=== PATIENT | female | born 1985 | race Caucasian/White ===

== ENCOUNTER 2019-03-15 08:30 | Day surgery (SDC) | payer OTHER, SELFPAY ==
--- NOTE | 2019-03-12 17:23 | HP.PCM_ITS ---
History and Physical Date of Admission: 03/15/19 Es Clancy Physician GRADUATE STUDIES DEAN H&P Signed Encounter Date: 03/12/2019 Expand All Collapse All Hide copied text Cordell for details Paulina Wise is a 33 year old female who presents for pre op for AUB. Pt is scheduled for hysteroscopy, D&C, polypectomy using syphion. Patient had a recent ultrasound which showed a fundal endometrial polyp. Patient states she has heavy bleeding with intermenstrual spotting. Currently patient denies any chest pain, shortness breath, dizziness, fevers. ? PAST?MEDICAL?HISTORY PAST MEDICAL HISTORY Diagnosis Date ? Lump of breast, right 06/13/2012 ? Migraines ? ? Atypical Migraines ? PAST?SURGICAL?HISTORY PAST SURGICAL HISTORY Procedure Laterality Date ? BREAST BIOPSY ? 07/24/12 ? Right Breast ? MYOMECTOMY ABDOM COMPLEX ? 09/01/15 ? [facility]- Myomectomy ? FAMILY?HISTORY FAMILY HISTORY Problem Relation Age of Onset ? other (endometriosis) Mother ? ? hysterectomy ? Diabetes Father ? ? Stroke Father ? ? Recent strokes ? No Known Problems Sister ? ? No Known Problems Sister ? ? other (Dementia) Maternal Grandmother ? ? Stroke Maternal Grandfather ? ? Heart Paternal Grandmother ? ? CHF, SD ? Alzheimer's Disease Paternal Grandfather ? ? SOCIAL?HISTORY Social History Socioeconomic History Marital status: Single Spouse name: Not on file Number of children: 0 Years of education: Not on file Highest education level: Not on file Occupational History Occupation: MANAGER CLIENT SERVICE Employer: [employer] Social Needs Financial resource strain: Not on file Food insecurity: Worry: Not on file Inability: Not on file Transportation needs: Medical: Not on file Non-medical: Not on file Tobacco Use Smoking status: Never Smoker Smokeless tobacco: Never Used Substance and Sexual Activity Alcohol use: Yes Comment: Rarely Drug use: No Sexual activity: Not Currently Lifestyle Physical activity: Days per week: Not on file Minutes per session: Not on file Stress: Not on file Relationships Social connections: Talks on phone: Not on file Gets together: Not on file Attends [employer]aritan service: Not on file Active member of club or organization: Not on file Attends meetings of clubs or organizations: Not on file Relationship status: Not on file Intimate partner violence: Fear of current or ex partner: Not on file Emotionally abused: Not on file Physically abused: Not on file Forced sexual activity: Not on file Other Topics Concerns: Not on file Social History Narrative Not on file ? CURRENT?MEDICATIONS ? Current Outpatient Medications: rizatriptan (MAXALT) 10 mg tablet Take 1 tablet by mouth as needed for Migraine Headache (see administration instructions) (5-10 mg every 2 hrs as needed for migraine (max 30 mg/day)). May repeat in 2 hours if needed naproxen sodium (ALEVE) 220 mg tablet Take 2 tablets by mouth as needed (for cramping). ibuprofen (MOTRIN) 600 mg tablet Take 1 tablet by mouth every 6 hours as needed. FOR PAIN. ? No current facility-administered medications for this visit. Allergies As of Date: 03/12/2019 (No Known Allergies) Fully Assessed 03/12/2019 ? ? REVIEW OF SYSTEMS Abdomen: no pain Bladder: no dysuria .. Expanded ROS: GENERAL: Negative for fever Allergies and current medication updated:Yes ? EXAM: BP 94/52 Wt 145 lb (65.8kg) LMP 02/27/2019 ? GENERAL: pleasant, female in no apparent distress HEENT: Normocephalic and atraumatic NECK: full range of motion DERMATOLOGY: Normal, without lesions, non-icteric and non-hirsute CARDIAC: Regular rate and rhythm CHEST: Clear to auscultation Normal inspiratory effort NEURO: alert and oriented x3,exam grossly non-focal ? Report Summary: Overall impression: Uterus is retroverted with normal size and contour. ? Endometrial thickness 9.5 mm. ?There is a hyperechoic area at the fundal aspect which is consistent with the endometrial polyp. Right ovary with multiple follicles Left ovary with multiple follicles and what appears to be an involuting corpus luteal cyst measuring 2.2 cm in greatest dimension. ? Moderate amount of free fluid in the cul-de-sac. Recommendations / therapy: Consider hysteroscopic resection of the endometrial polyp. Follow- up: Follow-up as clinically indicated. Indication: Abnormal Uterine Bleeding. History: Last menstrual period: 01/31/2019. 13th day of cycle. Gynecological Ultrasonography: Uterus: normal, retroverted. Size: Longitudinal 75 mm. Anterio- posterior 41 mm. Transverse 50 mm. Volume: 80.5 ?ml. Uterine abnormalities: none. Endometrium: endometrium clearly visualized. Endometrial cavity: shows a hyperechoic area consistant with an endometrial polyp. Endometrial polyps: 7 mm x 4 mm x 5 mm. Fundal. Structure: homogeneous. Method visualized: without fluid enhancement. Right Ovary: normal. Visible. Outline: smooth. Morphology: multifollicular. Right Ovary size: 31 mm x 26 mm x 23 mm. Volume: 9.7 ml. Left Ovary: normal. Visible. Outline: smooth. Morphology: multifollicular. Left Ovary size: 35 mm x 22 mm x 23 mm. Volume: 9.3 ml. Cysts Left Ovary: Cyst 1: Mean value: 17 mm. D1: 22 mm. D2: 18 mm. D3: 12 mm. Volume: 2 ml. Complex cyst. Cul de Sac / Pouch of Stanislav: Small amount of free fluid. Largest pool 13.0 mm x 12.0 mm x 17.0 mm. Appearances: anechoic. Method: transvaginal ultrasound. Performed by:Anne Zarco RDMS Read by:Es Mcmahon MD ? ASSESSMENT AND PLAN: Encounter Diagnosis ? ? ICD-10-CM ? 1. Abnormal uterine bleeding (AUB) N93.9 ? 2. Endometrial polyp N84.0 ? ? 3. Pt has been counseled on risks/benefits and alternatives of surgery including but not limited to anesthesia, bleeding, infection, injury to pelvic structures including bowel, bladder, and vessels. Pt wishes to proceed with surgery at this time. 4. Consent signed 5. Post op meds given ? ? Es Jiang MD ?5:20 PM Office Visit on 03/12/2019
[2019-03-15 08:52] VITALS: BP 95/52; PULSE 86; RESP 14; TEMP 36.9; O2SAT 100; BMI 21.6
[2019-03-15 08:59] LABS: Hematocrit 43.9 % (37-47); Hemoglobin 14.2 g/dL (12.0-15.0); Mean Corp Hgb Conc 32.3 g/dL (32-36); Mean Corpuscular Hgb 27.2 pg (27.0-32.0); Mean Corpuscular Volume 84.1 fL (81-99); Mean Platelet Vol. 9.3 fl (6.2-12.0); Platelet Count 261 K/mm3 (150-450); RBC Distribution Width CV 12.9 % (11.6-14.6); RBC Distribution Width SD 39.2 fl (35.1-43.9); Red Blood Count 5.22 M/mm3 (4.2-5.4); White Blood Count 6.5 K/mm3 (4.4-11.0)
[2019-03-15 09:05] LABS: Internal QC Validated? YES +Cl - CLEAR BKGD; Pregnancy, Urine Negative Negative
[2019-03-15] MEDS: Lactated Ringers 1,000 ML 100 ML IV (09:18)
--- NOTE | 2019-03-15 10:00 | EMB_PTH ---
PATIENT: KURTIS JAMES LOC: [facility] [place][id number] AGE/SX: 33/F ROOM: RE03/15/[address]: Dr. Es Jiang, MDDOB: 1985 BED: DIS: 03/15/2019 SPEC #: [id number] RECD: 03/15/19 14:46 STATUS: SHELIA LYNETTE #: [id number] OCTAVIA: 03/15/19 10:[address]: Es Jiang DEPT: SURGICAL PATHOLOGY RECD BY: Daniele Rudd ENTERED: 03/16/19 08:23 SP TYPE: ENDOM BX/C KASSANDRA DR: Dr. Linus Bautista III, MD Tissues: A - Endometrium, NOS B - POLYP Procedures: Surgery Specimen Level IV HEADER OPERATION: Hysteroscopy, D & C Symphion, polypectomy PRE-OP DIAGNOSIS: Abnormal uterine bleeding; endometrial polyp TISSUE SUBMITTED: A - Endometrial curettings, B - Polyp MICROSCOPIC DIAGNOSIS A. Endometrial curettings: Secretory endometrium. Fragments of benign ecto- and endocervical mucosa. B. Polyp: Secretory endometrium. Fragments of myometrium. See comment. HARIKA:sharmila 03/19/19 COMMENT B. A few fragments have polypoid appearance and may represent fragments of polyp. MICROSCOPIC DESCRIPTION Slides are reviewed. GROSS DESCRIPTION A - Received in fixative is one container labeled with the patient's name and designated endometrial curettings. The specimen consists of multiple fragments of hemorrhagic soft tissue that in aggregate measure 3 x 2.5 x 0.3 cm. The entire specimen is submitted in one cassette. B - Received in fixative is one container labeled with the patient's name and designated polyp. The specimen consists of multiple irregular fragments of phillips-pink soft tissue that in aggregate measure 3 x 2.5 x 0.3 cm. The entire specimen is submitted in one cassette. / HARIKA:sharmila 03/16/19 TC:5 CPT: 82406 x2
--- NOTE | 2019-03-15 12:00 | PCM.OPRPT ---
Report of Operation Date of Procedure: 03/15/19 Pre-Operative Diagnosis: AUB, endometrial polyp Post-Operative Diagnosis: same Surgery/Procedure Performed:: hysteroscopy, D&C, with symphion Description of Surgical Findings:: large amount of endometrial tissue. Questionable polypoid tissue. Uterus approximately 9 cm and retroverted. Right tubal ostia visualized left tubal ostia difficult to see. photo mask processor: MAGNOLIA - Cesar Preston Type of Anesthesia:: MAC Specimen's removed: Endometrial curettings Drains: none Estimated Blood Loss (mL): 5 Fluids Replaced: 500 Description of Procedure: Informed consent was obtained the patient was taken the operating room she was placed in supine position. She was given anesthesia. She was then placed in the [facility] where she was prepped and draped in the normal sterile fashion. Bladder drained- 100cc urine expelled. At this time the weighted speculum was placed in the posterior fornix of vagina. Single-tooth tenaculum was used to gently grasp the anterior lip the cervix. At this time the uterine cavity was sounded to approximately 9 cm. Gentle dilatation was performed once adequate dilatation of the cervix was achieved the hysteroscope using normal saline as a distention medium was placed. abundant Endometrial tissue with possible polypoid tissue. Otherwise no gross abnormalities. Right Tubal ostia visualized left was difficult to visualize. Sharp curettage was performed. unable to get all tissue at fundal aspect- resector device for symphion used to remove remaining tissue. Moderate amount of endometrial tissue removed. This will be sent to pathology for evaluation. Procedure was deemed complete successful there are no complications. Anticipated normal postoperative course. Instrument lap count correct ?2. Fluid deficet 300cc Vaginal Sweep was negative. Grafts/Implants Used: none - Complications none - Admit VTE Documentation VTE Present on Admission: Yes VTE Mechan Device Prophylaxis: SCD's VTE Pharm Prophylaxis ordered?: No Reason prophylaxis not ordered:: Procedure Not Indicated
--- NOTE | 2019-03-15 12:06 | DCINST_ITS ---
Discharge Diet: No Restrictions Discharge Activity: Return to Normal Activity, May Shower, May Take a Tub Bath - in 2 weeks. Allergies/Adverse Reactions: Allergies No Known Allergies Allergy (Verified 03/08/19 09:56) Medications to take at Discharge Rizatriptan Benzoate [Rizatriptan] 10 mg PO PRN PRN 03/08/19 Primary Care Physician: Linus Bautista III, MD [Primary Care Provider] - Test Results: Test results from this visit will be discussed in further detail at your follow- up appointment, if applicable.
[2019-03-15 12:16] VITALS: BP 95/52; BP 97/55; PULSE 86; RESP 16; TEMP 36.1; O2SAT 96
[2019-03-15 12:20] VITALS: BP 93/49; BP 95/52; PULSE 83; RESP 16; O2SAT 96
[2019-03-15 12:25] VITALS: BP 104/73; BP 95/52; PULSE 86; RESP 16; O2SAT 96
[2019-03-15 12:27] VITALS: BP 95/52; BP 96/73; PULSE 69; RESP 16; TEMP 36.5; O2SAT 97
[2019-03-15 13:21] VITALS: BP 95/52
== END 2019-03-15 13:26 | disposition home or self-care (01) ==
LOC: SDC 08:34 → AC 08:35
PROVIDERS: Anesthesiology; Family Provider Family Medicine; PCP Family Medicine; Referring Provider Obstetrics & Gynecology; Visit Provider Obstetrics & Gynecology
PROC: 0UB98ZZ Excision of Uterus, Via Natural or Artificial Opening Endoscopic (ICD-10-PCS; CPT 58558; principal; 2019-03-15 09:45)
DX: N84.0 Polyp of corpus uteri (principal); N93.9 Abnormal uterine and vaginal bleeding, unspecified; G43.909 Migraine, unspecified, not intractable, without status migrainosus; Z79.899 Other long term (current) drug therapy
CPT/HCPCS: 58558; 36415; 81025; 85027; 88305; J7120

== ENCOUNTER 2021-04-30 17:10 | Emergency (ER) | payer OTHER, SELFPAY ==
[2021-04-30 17:11] VITALS: BP 124/85; PULSE 96; RESP 16; TEMP 36.3; O2SAT 100; BMI 24.3
--- NOTE | 2021-04-30 17:32 | CT_ITS ---
STUDY: CT ABDOMEN AND PELVIS WITH CONTRAST REASON FOR EXAM: Female, 35 years old. LLQ pain RADIATION DOSAGE (If Supplied By Facility): CTDIvol = ( 11.53 ) mGy, DLP = ( 536.01 ) mGycm TECHNIQUE: Transaxial images were obtained from the dome of the diaphragm to the symphysis pubis without oral contrast. IV 100mL Isovue-300 was administered. Sagittal and coronal images were reconstructed. Individualized dose optimization techniques were used for this CT. COMPARISON: None. FINDINGS: There is minimal dependent atelectasis within the lower lobes. The visualized portions of the heart are within normal limits. There are two too small to characterize low-attenuation foci within the left hepatic lobe which may reflect underlying cysts or hemangiomas. Normal gallbladder and extrahepatic biliary system. Normal spleen. Normal pancreas. Normal bilateral adrenal glands. Normal right kidney. Normal left kidney. Normal visualized stomach. Normal small intestine. Normal colon. The appendix is visualized and appears normal. Normal abdominal aorta. Normal inferior vena cava. Normal retroperitoneum. Normal urinary bladder. Normal abdominal wall. Normal osseous structures. CT/Abdomen/Pelvis W IV Cont ONLY IMPRESSION: No acute intra-abdominal process. Electronically Signed: Daisy Bianchi MD at 19:36 EDT Tel , Service support ,
[2021-04-30 17:50] LABS: Absolute Lymphocyte Count 3.01 X10^3/uL (0.83-4.51); Absolute Neutrophil Count 6.9 X10^3/uL (2.0-7.7); Basophil# 0.08 X10^3/uL; Basophil% 0.7 % (0-1); Eosinophil# 0.24 X10^3/uL; Eosinophils% 2.2 % (0-5); Hematocrit 40.7 % (37-47); Hemoglobin 13.3 g/dL (12.0-15.0); Lymphocyte # 3.01 X10^3/ul (0.83-4.51); Lymphocyte % 27.4 % (19-41); Mean Corp Hgb Conc 32.7 g/dL (32-36); Mean Corpuscular Hgb 27.4 pg (27.0-32.0); Mean Corpuscular Volume 83.7 fL (81-99); Mean Platelet Vol. 9.1 fl (6.2-12.0); Monocyte# 0.68 X10^3/uL; Monocyte% 6.2 % (0-10); NRBC Flagged by Analyzer 0 % (0-5); Neutrophil # 6.94 X10^3/uL (2.7-7.7); Neutrophil % 63.1 % (47-70); Platelet Count 374 K/mm3 (150-450); RBC Distribution Width CV 12.9 % (11.6-14.6); RBC Distribution Width SD 39.4 fl (35.1-43.9); Red Blood Count 4.86 M/mm3 (4.2-5.4)
[2021-04-30 18:09] LABS: Anion Gap 5 (5-15); BUN 14 mg/dL (7-18); Calcium,Total 8.7 mg/dL (8.5-10.1); Chloride 106 mmol/L (98-107); Creatinine, Serum 0.93 mg/dL (0.55-1.02); EST Glomerular Filtration Rate 73 mL/min (>60); Est Glom Filt Rate - Afr Amer 88 mL/min (>60); Estimated Creatinine Clearance 85.17 ml/min; Glucose 81 mg/dL (74-106); Potassium 3.5 mmol/L (3.5-5.1); Sodium Level 140 mmol/L (136-145)
[2021-04-30] MEDS: 0.9% Normal Saline 1,000 ML 999 ML IV (18:15)
[2021-04-30] MEDS: Morphine 4 MG/ML Syringe IV (18:15)
[2021-04-30] MEDS: Ondansetron 4 MG/2 ML Vial IV (18:15)
[2021-04-30 18:30] LABS: Bacteria 0 SEEN /hpf (None Seen); Mucous, Urine 0 SEEN /hpf (<or=2+); Red Blood Cells-Urine 0 SEEN /hpf (0-5); Squamous Epithelial Cells - UA 0 SEEN /hpf (5-10); White Blood Cells 0 SEEN /hpf (0-5)
[2021-04-30 18:35] LABS: Color, Urine Yellow (Yellow); Glucose, Dipstick Normal (Normal); Ketone-Dipstick Negative (Negative); Leukocyte Esterase-Dipstick Negative /ul (Negative); Nitrite-Dipstick Negative (Negative); Occult Blood-Urine 50 /ul (Negative); Protein-Dipstick Negative (Negative); Urine Bilirubin Dipstick Negative (Negative); Urine Clarity Clear (Clear); Urine Urobilinogen Normal (Normal)
--- NOTE | 2021-04-30 20:46 | EX.ED.DYSGE1 ---
HPI History of Present Illness Chief Complaint: Abd Pain Narrative Narrative: Patient is a 35-year-old female who states when she gets her menstrual cycle she typically has increased pain and cramping. She states she is currently on her cycle but today at work had increased pain mainly in the left lower quadrant and therefore went to her OBs office. The OB did an exam as well as an ultrasound and patient was informed that there is no obvious signs of ovarian pathology as a cause of her symptoms and therefore she presents to the ER for evaluation. PFSH PFSH Medical History no medical history Home Medications rizatriptan 10 mg PO PRN PRN 03/08/19 [History Last Taken Unknown] metoprolol tartrate 25 mg PO DAILY 04/30/21 [History Last Taken Unknown] ondansetron HCl [Zofran] 4 mg PO Q8H PRN #21 tab 04/30/21 [Rx Last Taken Unknown] oxycodone-acetaminophen [Endocet] 1 tab PO Q6H PRN 3 Days #12 tab 04/30/21 [Rx Last Taken Unknown] Allergy/AdvReac Type Severity Reaction Status Date / Time No Known Allergies Allergy Verified 04/30/21 17:11 Social History Smoking Status: Never smoker ROS ROS ED Constitutional Constitutional ED: Denies chills or fever(s) ENT ENT ED: Denies sore throat Cardiovascular Cardiovascular: Denies chest pain Respiratory/Chest Respiratory/Chest: Denies cough or dyspnea Gastrointestinal Gastrointestinal: Reports abdominal pain; Denies diarrhea, nausea or vomiting Genitourinary Genitourinary ED: Denies dysuria Musculoskeletal Musculoskeletal: Denies back pain or myalgias Integumentary Denies rash Neurologic Neurologic: Denies headache(s) Hematologic/Lymphatic Hematologic/Lymphatic: Denies easy bleeding or easy bruising EXAM Physical Exam Const Vital Signs: 04/30/21 17:11 04/30/21 21:02 Temperature 97.4 F L Temperature Source Temporal Pulse Rate 96 65 Respiratory Rate 16 Blood Pressure 124/85 H 116/81 H Blood Pressure Mean 98 Pulse Ox 100 Oxygen Delivery Method Room Air Positive well nourished and well developed General Appearance ED: well developed HEENT Reports moist mucous membranes Eyes PERRL and EOMs intact bilaterally Neck supple Resp normal respiratory effort and clear to auscultation bilaterally Cardio regular rate and regular rhythm GI non-distended and no masses GI Narrative: Patient has pain to palpation in the left lower quadrant with mild guarding at the site however there is no rigidity noted no pulsatile mass Auscultation: normoactive bowel sounds Palpation: soft Back/Spine no CVA tenderness Extremity normal to inspection Neuro oriented x3 and CN's II-XII intact bilaterally Sensorium / Orientation: alert Motor Exam: strength 5/5 throughout Psych mental status grossly normal Skin no rashes or lesions noted MDM MDM MDM Narrative Medical decision making narrative: Patient presented to the ER afebrile and states she was recently evaluated by the DATA COMMUNICATIONS ENGINEER who performed an exam and ultrasound ruling out torsion as a cause of her pain. Therefore with her mild guarding on exam I did elect to perform basic laboratory studies and a CT scan. Labs revealed no clinically significant findings. There is blood present in the urine sample but she is also on her menstrual cycle so this is not uncommon. Her CT scan revealed no acute findings. I feel at this time her pain is most likely due to a stone that has been missed on scanner is not radiopaque based on location in the left lower quadrant and report of negative ultrasound. As she does not have signs of acute kidney injury or septicemia I do not feel there is need for placement in the hospital and patient given pain medication and discharged home Lab Data Attestation: I reviewed the patient's lab results. Labs: Laboratory Results - last 24 hr 04/30/21 04/30/21 04/30/21 17:30 17:30 18:15 WBC 11.0 RBC 4.86 Hgb 13.3 Hct 40.7 MCV 83.7 MCH 27.4 MCHC 32.7 RDW Std Deviation 39.4 RDW Coeff of Jun 12.9 Plt Count 374 MPV 9.1 Immature Gran % (Auto) 0.400 Neut % (Auto) 63.1 Lymph % (Auto) 27.4 [place] % (Auto) 6.2 Eos % (Auto) 2.2 Baso % (Auto) 0.7 Absolute Neuts (auto) 6.9 Absolute Lymphs (auto) 3.01 Nucleated RBC % 0 Sodium 140 Potassium 3.5 Chloride 106 Carbon Dioxide 29.0 Anion Gap 5 BUN 14 Creatinine 0.93 Estim Creat Clear Calc 85.17 Est GFR (MDRD) Af Amer 88 Est GFR (MDRD) Non-Af 73 BUN/Creatinine Ratio 15.0 Glucose 81 Calcium 8.7 Urine Color Yellow Urine Clarity Clear Urine pH 7.0 Ur Specific [place] 1.010 Urine Protein Negative Urine Glucose (UA) Normal Urine Ketones Negative Urine Occult Blood 50 H Urine Nitrite Negative Urine Bilirubin Negative Urine Urobilinogen Normal Ur Leukocyte Esterase Negative Urine RBC 0 SEEN Urine WBC 0 SEEN Ur Squamous Epith Cells 0 SEEN Urine Bacteria 0 SEEN Urine Mucus 0 SEEN Radiography Diagnostic Testing: Clinical Impression(s) from Imaging Studies Abdomen/Pelvis CT 04/30/21 17:32 IMPRESSION: No acute intra-abdominal process. Electronically Signed: Daisy Bianchi MD at 19:36 EDT Tel , Service support , Discharge Plan Triage Chief Complaint: Abd Pain ED Provider: Karl Choi Dx/Rx/DC Orders Clinical Impression: Abdominal pain, left lower quadrant Instructions: Abdominal Pain, ED Abdominal Pain Unkn Cause Fem Prescriptions: New oxycodone-acetaminophen [Endocet] 5-325 mg tablet 1 tab PO Q6H PRN (Reason: pain) 3 Days Qty: 12 RF: 0 ondansetron HCl [Zofran] 4 mg tablet 4 mg PO Q8H PRN (Reason: nausea and vomiting) Qty: 21 RF: 0 No Action rizatriptan 10 MG tablet,disintegrating 10 mg PO PRN PRN (Reason: migraines) RF: 0 metoprolol tartrate 25 mg tablet 25 mg PO DAILY RF: 0 Primary Care Provider: Care Physician,No Primary Referrals: Fast,Lori, DO [NON-STAFF] - 3-5 Days if not improving Care Physician,No Primary [Primary Care Provider] - Disposition Disposition: Home, Self Care Discharge Date/Time: 04/30/21 21:07
[2021-04-30] MEDS: Ketorolac 30 MG/ML Syringe IV (20:57)
[2021-04-30] MEDS: HYDROmorphone 1 MG/ML Syringe IV (20:57)
[2021-04-30 21:02] VITALS: BP 116/81; PULSE 65
== END 2021-04-30 21:07 | disposition home or self-care (01) ==
PROVIDERS: Emergency Provider Emergency Medicine
DX: R10.32 Left lower quadrant pain (principal)
CPT/HCPCS: 74177; 80048; 81001; 85025; 96361; 96374; 96375; 99284; J7030; Q9967; A4216; J2405

== ENCOUNTER → 2021-06-04 | Outpatient (CLI) | payer OTHER, SELFPAY | END | disposition home or self-care (01) | LOC: LABSPEC 14:40 | PROVIDERS: Visit Provider Obstetrics & Gynecology | DX: Z03.818 Encounter for observation for suspected exposure to other biological agents ruled out (principal) | CPT/HCPCS: 87635; U0005; U0003 ==

== ENCOUNTER 2021-06-08 08:09 | Day surgery (SDC) | payer OTHER, SELFPAY ==
[2021-06-01 17:26] LABS: Hematocrit 39.7 % (37-47); Hemoglobin 12.9 g/dL (12.0-15.0); Mean Corp Hgb Conc 32.5 g/dL (32-36); Mean Corpuscular Hgb 27.2 pg (27.0-32.0); Mean Corpuscular Volume 83.8 fL (81-99); Mean Platelet Vol. 9.9 fl (6.2-12.0); Platelet Count 333 K/mm3 (150-450); RBC Distribution Width CV 12.8 % (11.6-14.6); RBC Distribution Width SD 39.3 fl (35.1-43.9); Red Blood Count 4.74 M/mm3 (4.2-5.4); White Blood Count 10.1 K/mm3 (4.4-11.0)
[2021-06-08] VITALS (10 sets, daily range): BP systolic 94–105; BP diastolic 46–71; PULSE 56–76; RESP 16; TEMP 36.6; O2SAT 98–100; BMI 22.4
--- NOTE | 2021-06-08 | IMM_PTH ---
PATIENT: KURTIS JAMES LOC: [facility] [place][id number] AGE/SX: 35/F ROOM: RE06/08/[address]: Dr. Zechariah Mancini MD : 1985 BED: DIS: 06/08/2021 SPEC #: [id number] RECD: 06/09/21 12:09 STATUS: SHELIA REQ #: [id number] OCTAVIA: 06/08/21 00:[address]: Zechariah Mancini DEPT: IMMUNOHISTOCHEMISTRY RECD BY: Imelda Link ENTERED: 06/09/21 12:10 SP TYPE: IMMUNO OTHR DR: No Primary Care Phys Tissues: Right ovary Procedures: Calretinin (initial) SHIRLEY (add) P53 (add) Pankeratin (add) PHYSICIAN & INSTITUTION [place] [id number] SPECIMEN INFORMATION: Tissue Source: Right ovarian cyst Clinical Info: Right ovarian cyst Specimen Number: [id number] CPT code: 07874, 40030 x3 METHODOLOGY: Deparaffinized sections of prefer/formalin-fixed tissue or PAP/DQ stained slides are incubated with monoclonal/polyclonal antibodies/oligonucleotide probes. Localization is made via biotin free immunoperoxidase method. Appropriate controls are performed and reacted as expected. Results on target cell population are indicated in the following table: RESULTS: ANTIBODY / CLONE RESULT CALRET (polyclonal) positive SHIRLEY (E29) negative AE1-3 (AE1/AE3/PCK26) positive P53 (DO-7) negative These tests were developed and their performance characteristics determined by [facility]. They may not have been cleared or approved by the U.S. Food and Drug Administration. The FDA has determined that such clearance or approval is not necessary. The above immunohistochemical/dualISH markers are ordered and reviewed by the Pathologist. INTERPRETATION: Right ovarian cyst: Consistent with benign fibrous walled cyst. AM:sharmila 06/10/2021
--- NOTE | 2021-06-08 | OV_PTH ---
PATIENT: KURTIS JAMES [place] [facility] [place][id number] AGE/SX: 35/F ROOM: RE06/08/[address]: Dr. Zechariah Mancini MD : 1985 BED: DIS: 06/08/2021 SPEC #: [id number] RECD: 06/08/21 12:03 STATUS: SHELIA LYNETTE #: [id number] OCTAVIA: 06/08/21 00:[address]: Zechariah Mancini DEPT: SURGICAL PATHOLOGY RECD BY: Jamison Arthur ENTERED: 06/08/21 12:53 SP TYPE: OVARY OTHR DR: No Primary Care Phys Tissues: OVARIAN CYST Procedures: Surgery Specimen Level IV HEADER OPERATION: Diagnostic laparoscopy, removal of right ovarian cyst PRE-OP DIAGNOSIS: Pelvic pain, perineal pain TISSUE SUBMITTED: Right ovarian cyst MICROSCOPIC DIAGNOSIS Right ovarian cyst, cystectomy: Benign fibrous walled inclusion cyst. See comment. AM:sharmila 06/10/2021 COMMENT Immunohistochemistry ([id number]) supports the above diagnosis. MICROSCOPIC DESCRIPTION Slides are reviewed. GROSS DESCRIPTION Received in fixative is one container labeled with the patient's name and designated cyst right ovary. The specimen consists of a piece of phillips soft tissue measuring 1 x 0.6 x 0.1 cm. The entire specimen is submitted in one cassette. / SJ:rg 06/08/21 TC:5 CPT: 00654
--- NOTE | 2021-06-08 08:43 | PCM.HP.BLA ---
History and Physical Date of Admission: 06/08/21 Date: 06/08/2021 Name: PAULINA WISE Age: 35 Date of : 1985 Surgical History and Physical Date: 06/08/2021 Name: PAULINA WISE Age: 35 Date of : 1985 Paulina Wise, a 35 year old female 0 0 0 0 0, presents for Diagnostic laparoscopy, lysis of adhesions, possible fulguration of endometriosis on June 08, 2021 at . -- Paulina is here for diagnostic laparoscopy. All questions answered and consent was signed MEDICATIONS HISTORY: Patient is also takin. desogestrel 0.15 mg-ethinyl estradiol 0.03 mg tablet, One pill by mouth once a day 2. metoprolol tartrate 25 mg tablet, One pill by mouth once a day ALLERGIES: NKDA Infections - Chicken pox Illnesses - endometriosis Accidents - no injuries of consequence Hospitalizations - None cervical polyp removal, laparoscopy, breast bx; Review of Systems: GENERAL - Denies fever, or chills SKIN - Denies skin changes EYES - Denies visual changes EARS - Denies difficulty hearing NOSE - Denies nasal congestion or bleeding MOUTH - Denies sore throat or difficulty swallowing NECK - Denies pain or swelling RESPIRATORY - Denies shortness of breath or wheezing CARDIOVASCULAR - Denies palpitations or chest pain GASTROINTESTINAL - Denies nausea, vomiting, diarrhea, constipation GENITOURINARY - Denies dysuria, frequency of urination, incontinence of urine MUSCULOSKELETAL - Denies joint or muscle pain NEUROLOGICAL - Denies localized numbness or weakness PSYCHIATRIC - Denies depression or anxiety ENDOCRINE - Denies heat or cold intolerance, weight loss or gain HEMATO-IMMUNOLOGIC - Denies excesive bleeding with cuts SOCIAL HISTORY: Alcohol Use - denies drinking Smoking - denies smoking Diet - balanced Diet Lifestyle - moderate stress lifestyle Exercise - walking Seat Belt Use - always Employer - [employer] 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 MENSTRUAL HISTORY: LMP Known?- DefiniteAmount/Duration - 9 days, Regularity - Regular, Frequency - 30 days, LMP - 05/26/21, Age Onset Menarche - 14 PAST PREGNANCIES: Total Pregnancies - 0; Full Term Pregnancies - 0; Premature - 0; Abortions, Induced - 0; Abortions, Spontaneous - 0; Ectopics - 0; Multiple Births - 0; Living Children - 0 SURGICAL HISTORY: 1. 10/17/2007 benign mole removed ; Dr. Tracy - mole 2. 07/04/2018 cervical polyp removal ; - 3. 07/24/2012 right breast bx ; - 4. 09/01/2015 myomectomy abdominal ; - 5. 08/04/2015 laparoscopy ; - PHYSICAL EXAM BP- 100/62 Sitting, Right arm, regular cuff Weight- 152.84911 lbs Height- 68 inch BMI:[id number] CONSTITUTIONAL - NAD, well nourished, and well developed SKIN - No rash, lesions, or ulcers HEENT - Normocephalic, PERRLA, EOMI NECK - No nodes, no nuchal rigidity and thyroid normal size and texture ABDOMEN - Without hepatosplenomegaly, distention, masses, rebound, or guarding; normal bowel sounds; no hernias and Mildly bilateral lower quadrant tenderness EXTREMITIES - No edema or calf tenderness NEUROLOGICAL - Cranial nerves II-XII grossly intact PSYCHIATRIC - A and O to time, place, person, mood and affect External Genital Vagina - non-tender without lesions Urethra/Urethral Meatus - non-tender Bladder - non-tender Vagina - vaginal hopkins are pink and moist without loss of rugae and no evidence of atrophy Cervix - without cervical motion tenderness and has normal size and features without evident lesions Uterus - 5-6 cm in size, mobile and nontender Adnexa - clear without masses or tenderness ASSESSMENT/PLAN: 1. Pelvic And Perineal Pain Patient previously seen by [facility], history of endometriosis for years. Saw Dr. Lida Parekh for Ex laparotomy fulguration of endometriosis myomectomy 2015. At that time had pain relief. Since has tried >3 different types of OCP with no pain relief Patient with multiple ER visits. CT and pelvic ultrasound within normal limits. Exam tender in bilateral lower quadrants Educated patient on results, concern for adhesions with laparotomy and endometriosis. Patient has been on multiple control forms with no improvement, discussed surgical options and risks with history of laparotomy Patient states understanding and wished to proceed 2. Encounter For Other Preprocedural Examination Scheduled for dx laparoscopy, lysis of adhesions, possible fulguration of endometriosis Long discussion about previous surgeries and their complications with this surgery. pt states understanding and wishes to proceed takes metoprolol for migraines. Has some nausea with anesthesia follow up 2 weeks postoperatively
[2021-06-08 08:51] LABS: Internal QC Validated? YES +Cl - CLEAR BKGD; Pregnancy, Urine Negative Negative
[2021-06-08] MEDS: Lactated Ringers 1,000 ML 15 ML IV (09:12)
--- NOTE | 2021-06-08 11:10 | PCM.DC ---
Discharge Instructions Diet Discharge Diet: No restrictions Activity Discharge Activity: Return to Normal Activity, May Drive and May Shower May resume sexual activity in: 4-6 weeks Lifting Restrictions: No lifting over 25 pounds for 2 to 3 weeks Dressing / Incision Call your doctor if your incision/area has: Continuous Slow Oozing and Foul Smelling Discharge Call your doctor if you observe: Fever of 101 or Higher, Shortness of breath and Chest pain Follow Up Care Please Follow Up With: Zechariah Mancini MD When: 2 weeks postoperatively Test Results: Test results from this visit will be discussed in further detail at your follow-up appointment, if applicable. Discharge Plan Admission Attending Provider: Zechariah Mancini Primary Care Provider: Care PhysicianMeghan Primary Discharge Orders/Prescriptions Prescriptions: No Action rizatriptan 10 MG tablet,disintegrating 10 mg PO PRN PRN (Reason: migraines) RF: 0 metoprolol tartrate 25 mg tablet 25 mg PO DAILY RF: 0 ibuprofen 400 mg Tablet 400 mg PO Q6H PRN (Reason: Pain) RF: 0 desogestrel-ethinyl estradiol 0.15-0.03 mg (21) Tablet 1 tab PO DAILY RF: 0 Disposition Discharge Orders: Discharge Patient (Routine); Ordered 06/08/21 Ordered By: Dr. Zechariah Mancini
--- NOTE | 2021-06-08 11:17 | OP.PCM_ITS ---
Report of Operation Date of Procedure: 06/08/21 Pre-Operative Diagnosis: Pelvic pain Post-Operative Diagnosis: Pelvic pain Surgery/Procedure Performed:: Diagnostic laparoscopy, removal of right ovarian cyst, lysis of bilateral utero-ovarian adhesions Description of Surgical Findings:: Surgeon: Zechariah Mancini MD Anesthesia: General EBL: 20 cc Urine output: 50 cc IV fluids: 1200 cc Complications none Specimen: Right ovarian cyst Findings: Minimal lower and upper abdominal adhesions. Large amount of bilateral utero-ovarian and utero-ovarian fallopian tube adhesions, greater than 20 minutes of lysis of adhesions. Right fallopian tube and ovary adhesed to posterior portion of uterus, 2 cm right ovarian cyst simple in appearance removed and sent to pathology. Left fallopian tube ovary and uterus with adhesions to uterine sidewall. Bilateral adhesions lysed and fallopian tubes bilaterally ovaries bilaterally all free from adhesions. Left broad ligament with 3 to 4 cm defect through the anterior and posterior flap, left ureter visualized in standard anatomical location. 2 to 3 cm posterior fundal fibroid noted, appears subserosal. Bladder with minimal adhesions. Left upper abdomen/upper quadrant with small amount of omental adhesions. Survey for endometriosis with large amount of endometriosis in the epiploic fat of the intestine seeding the epiploic fat. Overall unresectable endometriosis in this area without great risk to bowel. Further survey of the abdomen reveals minimal endometriosis. Consent: Patient with pelvic pain elects for diagnostic laparoscopy possible fulguration of endometriosis. Patient understands the risk of the procedure include but are not limited to visceral or vascular injury, prolonged hospitalization, blood loss and need for transfusion, reoperation. Patient state understanding and wished to proceed. All questions were answered and consent was signed. Procedure: Patient was brought back to the OR where general anesthesia was found to be adequate. Patient was prepared and draped in a dorsal lithotomy position with yellowfin stirrups. A weighted speculum is placed in the posterior aspect of the vagina and cervical dilators were used to dilate the cervix. Uterine man ipulator was placed. Left upper quadrant Bella's point 5 mm skin incision was made and trocar was inserted under direct visualization via Optiview, insufflation could not be obtained in the proper plane/abdominal cavity. Varies needle was inserted at the umbilicus and water safety test was passed, abdomen was insufflated but in proper pressure was noted and varies needle was removed. 5 mm midline supraumbilical incision was made and trocar was inserted under direct visualization, abdomen was insufflated safely and no pathology was noted from previous insufflation attempts. Laparoscope was inserted and above findings were noted. Bilateral 5 mm lower quadrant trochars were inserted under direct visualization. Right ovary fallopian tube and uterus adhesions were lysed with LigaSure device bipolar cut and cauterized, after lysis right ovary fallopian tube and uterus were free of adhesions. Right ovary with cyst noted as above removed with LigaSure device and sent to pathology. Left fallopian tube ovary and uterus adhesions were lysed with LigaSure device cut and cauterized with bipolar, at completion of lysis left fallopian tube ovary and uterus were free of adhesions. Overall greater than 20 minutes of lysis of adhesion was performed. As noted above epiploic fat endometriosis seeding was noted and deemed to be unresectable. Abdomen was desufflated and trochars were removed under direct visualization, good hemostasis was noted. Laparoscopic incisions were closed in a subcutaneous fashion. Good hemostasis was noted. Uterine manipulator was removed, good hemostasis was noted. All counts were correct x2. Patient tolerated the procedure well and was brought to recovery in stable condition.
--- NOTE | 2021-06-08 13:17 | SUR.PHASEII ---
This nurse called Dr. Mancini d/t patient requesting pain medication for home. Patient instructed to visit dr. mancini's office after dc form AC.
[2021-06-08] MEDS: Acetaminophen 500 MG Tablet 1000 MG PO (13:27)
== END 2021-06-08 14:11 | disposition home or self-care (01) ==
LOC: SDC 08:12 → AC 08:12
PROVIDERS: Anesthesiology; Referring Provider Obstetrics & Gynecology; Visit Provider Obstetrics & Gynecology
PROC: (CPT 49320; principal; 2021-06-08 09:30)
DX: R10.2 Pelvic and perineal pain (principal); N83.201 Unspecified ovarian cyst, right side; Z79.899 Other long term (current) drug therapy; Z82.49 Family history of ischemic heart disease and other diseases of the circulatory system
CPT/HCPCS: 00840; 49329; 58661; 58662; 36415; 81025; 85027; 86850; 86900; 86901; 88305; 88341; 88342; J7120; J2405

== ENCOUNTER 2021-12-03 05:21 | Day surgery (SDC) | payer BC, SELFPAY ==
[2021-11-27 11:31] LABS: Magnesium 2.3 mg/dL (1.6-2.6)
[2021-11-27 11:34] LABS: Hematocrit 43.2 % (37-47); Hemoglobin 13.8 g/dL (12.0-15.0); Mean Corp Hgb Conc 31.9 g/dL (32-36); Mean Corpuscular Hgb 26.8 pg (27.0-32.0); Mean Corpuscular Volume 83.9 fL (81-99); Platelet Count 379 K/mm3 (150-450); RBC Distribution Width CV 13.1 % (11.6-14.6); RBC Distribution Width SD 40.3 fl (35.1-43.9); Red Blood Count 5.15 M/mm3 (4.2-5.4); White Blood Count 7.9 K/mm3 (4.4-11.0)
[2021-12-03] VITALS (14 sets, daily range): BP systolic 99–138; BP diastolic 55–88; PULSE 63–101; RESP 16; TEMP 36.2–37.6; O2SAT 98–100; BMI 23.8
[2021-12-03 06:01] LABS: Bedside Glucose 84 mg/dL (74-106)
[2021-12-03 06:09] LABS: Internal QC Validated? YES +Cl - CLEAR BKGD; Pregnancy, Urine Negative Negative
[2021-12-03] MEDS: Lactated Ringers 1,000 ML 40 ML IV ×2 (06:12→09:15)
[2021-12-03] MEDS: Acetaminophen 500 MG Tablet 1000 MG PO ×2 (06:16→12:47)
[2021-12-03] MEDS: Gabapentin 600 MG Tablet PO (06:16)
--- NOTE | 2021-12-03 07:08 | HP.PCM.OB_ITS ---
History and Physical Date of Admission: 12/03/21 Surgical History and Physical Date: 12/03/2021 Name: PAULINA WISE Age: 36 Date of : 1985 Paulina Wise, a 36 year old female 0 0 0 0 0, presents for Robotic assisted total laparoscopic hysterectomy bilateral salpingo- oophorectomy, cystoscopy on 12/03/21 at 7:30. -- She is having robotic assisted total laparoscopy hysterectomy. bilateral salpingectomy oophorectpmy cystoscopy. Medications and allergies are up to date. No concerns or problems today. States she is feeling well. Consents are signed. MEDICATIONS HISTORY: Current medications prescribed by our practice are: 1. Climara 0.025 mg/24 hr transdermal patch, apply once weekly Patient is also takin. desogestrel 0.15 mg-ethinyl estradiol 0.03 mg tablet, One pill by mouth once a day 2. metoprolol tartrate 100 mg tablet, One pill by mouth once a day 3. Nurtec ODT 75 mg disintegrating tablet, as needed ALLERGIES: NKDA Infections - Chicken pox Illnesses - endometriosis Accidents - no injuries of consequence Hospitalizations - None cervical polyp removal, laparoscopy, breast bx; Review of Systems: GENERAL - Denies fever, or chills SKIN - Denies skin changes EYES - Denies visual changes EARS - Denies difficulty hearing NOSE - Denies nasal congestion or bleeding MOUTH - Denies sore throat or difficulty swallowing NECK - Denies pain or swelling RESPIRATORY - Denies shortness of breath or wheezing CARDIOVASCULAR - Denies palpitations or chest pain GASTROINTESTINAL - Denies nausea, vomiting, diarrhea, constipation GENITOURINARY - Denies dysuria, frequency of urination, incontinence of urine MUSCULOSKELETAL - Denies joint or muscle pain NEUROLOGICAL - Denies localized numbness or weakness PSYCHIATRIC - Denies depression or anxiety ENDOCRINE - Denies heat or cold intolerance, weight loss or gain HEMATO-IMMUNOLOGIC - Denies excessive bleeding with cuts SOCIAL HISTORY: Alcohol Use - denies drinking Smoking - denies smoking Diet - balanced Diet Lifestyle - moderate stress lifestyle Exercise - walking Seat Belt Use - always 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 MENSTRUAL HISTORY: LMP Known?- DefiniteAmount/Duration - 9 days, Regularity - Regular, Frequency - 30 days, LMP - 11/12/21, Age Onset Menarche - 14 PAST PREGNANCIES: Total Pregnancies - 0; Full Term Pregnancies - 0; Premature - 0; Abortions, Induced - 0; Abortions, Spontaneous - 0; Ectopics - 0; Multiple Births - 0; Living Children - 0 SURGICAL HISTORY: 1. 10/17/2007 benign mole removed ; Dr. Tracy - mole 2. 07/04/2018 cervical polyp removal ; - 3. 07/24/2012 right breast bx ; - 4. 09/01/2015 myomectomy abdominal ; - 5. 08/04/2015 laparoscopy ; - 6. 06/08/2021 Dx laparoscopy, removal of rt ovarian cyst, lysis of bilateral utero-ovarian adhesions ; Zechariah Mancini MD - PHYSICAL EXAM BP- 114/66 Sitting, Right arm, regular cuff Weight- 156.68344 lbs Height- 68 inch BMI:[id number] CONSTITUTIONAL - NAD, well nourished, and well developed SKIN - No rash, lesions, or ulcers HEENT - Normocephalic, PERRLA, EOMI NECK - No nodes, no nuchal rigidity and thyroid normal size and texture ABDOMEN - Without hepatosplenomegaly, distention, masses, rebound, or guarding; normal bowel sounds; no hernias and Mildly bilateral lower quadrant tenderness EXTREMITIES - No edema or calf tenderness NEUROLOGICAL - Cranial nerves II-XII grossly intact PSYCHIATRIC - A and O to time, place, person, mood and affect External Genital Vagina - non-tender without lesions Urethra/Urethral Meatus - non-tender Bladder - non-tender Vagina - vaginal hopkins are pink and moist without loss of rugae and no evidence of atrophy Cervix - without cervical motion tenderness and has normal size and features without evident lesions Uterus - 5-6 cm in size, mobile and nontender Adnexa - clear without masses or tenderness ASSESSMENT/PLAN: 1. Pelvic And Perineal Pain Pt with known endometriosis, has had for years and cannot go to work with pain. No relief with IBU. Unresolved after diagnostic laparoscopy, ALEKS, right ovarian cystectomy. Patient with no relief after surgery. Very tearful, cannot attend work or life events. Stays at home but cannot sleep Educated patient on treatment options. Patient elects for hysterectomy with possible. Educated patient on risks of oophorectomy including decreased life expectancy, VA, stroke For robotic assisted total laparoscopic hysterectomy bilateral salpingo oophorectomy, cystoscopy 2. Encounter For Other Preprocedural Examination Scheduled for robotic assisted total laparoscopic hysterectomy bilateral salpingo-oophorectomy, cystoscopy for endometriosis and pelvic pain Educated patient on risk benefits alternatives. Discussed oophorectomy and increased morbidity and mortality, patient states understanding and wished to proceed. Rx for estrogen patch sent. Discussed home medications. Discussed lifting restrictions, intercourse Follow-up 2 weeks postoperatively
--- NOTE | 2021-12-03 07:30 | HYST_PTH ---
PATIENT: KURTIS JAMES LOC: [facility] [place] U#:[id number] AGE/SX: 36/F ROOM: RE12/03/[address]: Dr. Zechariah Mancini MD : 1985 BED: DIS: 12/03/2021 SPEC #: [id number] RECD: 12/03/21 10:09 STATUS: SHELIA OJEDA #: [id number] OCTAVIA: 12/03/21 07:[address]: Zechariah Mancini DEPT: SURGICAL PATHOLOGY RECD BY: Cici Roberto ENTERED: 12/03/21 12:58 SP TYPE: HYSTERECT OTHR DR: Dr. Gagan Moyer MD Tissues: Uterus, NOS Procedures: Surgery Specimen Level V HEADER OPERATION: ERAS, lap robotic hysterectomy, BSO, cysto PRE-OP DIAGNOSIS: Pelvic pain, endometriosis TISSUE SUBMITTED: Uterus, cervix, bilateral fallopian tubes and ovaries MICROSCOPIC DIAGNOSIS Uterus, hysterectomy: Cervix ? squamous metaplasia and mild chronic inflammation. Endometrium ? weakly proliferative to inactive endometrium. Myometrium ? adenomyosis. Right ovary ? follicular cyst and corpora albicantia. Left ovary - follicular cysts. Right fallopian tube - No pathologic change. Left fallopian tube ? hemosalpinx. AM:sharmila 12/04/2021 MICROSCOPIC DESCRIPTION Slides are reviewed. GROSS DESCRIPTION Received in fixative is one container labeled with the patient's name and designated uterus. The specimen consists of a uterus with attached cervix and attached right and left fallopian tubes and ovaries. The uterus with cervix measures 7.5 x 5.5 x 2.8 cm and weighs 56 gm. The ectocervix is unremarkable. The cervical os is oval in contour. The endocervical canal measures 3.2 cm in length and is grossly unremarkable. The triangular endometrial cavity measures 3.5 x 2.6 cm. The velvety, light phillips endometrium measures up to 0.2 cm in greatest thickness. The myometrium measures 1.8 cm in average thickness and is free of mass lesions. The right fallopian tube measures 8 cm in length and 0.4 cm in average diameter. No tubo-ovarian adhesions are seen. The crinkled, light phillips-yellow right ovary measures 3.5 x 2.5 x 1 cm and serial sections reveal multiple cysts ranging in size from 0.2 to 0.5 cm and containing clear fluid. The left fallopian tube is similar in appearance to the right tube and measures 6 cm in length and 0.7 cm in average diameter. No tubo-ovarian adhesions are identified. The left ovary is similar in appearance to the right ovary and measures 3.5 x 2.2 x 1.2 cm and contains several small cysts containing clear fluid. The cysts range in size from 0.2 to 0.4 cm. Mold Insert Changer sections are submitted as follows: 1 - anterior cervix, 2 - posterior cervix, 3 & 4 - anterior uterine wall, 5 & 6 - posterior uterine wall, 7 - right ovary and fallopian tube, 8 - left ovary, 9 - left fallopian tube. / AM:sharmila 12/03/21 TC:5 CPT: 85507
[2021-12-03] MEDS: Cefazolin 2 GM in 0.9% Normal Saline 100 ML IV (07:40)
--- NOTE | 2021-12-03 09:29 | PCM.DC ---
Discharge Instructions Diet Discharge Diet: No restrictions Activity Discharge Activity: Return to Normal Activity, May Drive (When not taking narcotic), May Shower and - (No tub baths for 2 weeks) May resume sexual activity in: 4-6 weeks Lifting Restrictions: No lifting over 25 pounds for 2 to 3 weeks Dressing / Incision Call your doctor if your incision/area has: Continuous Slow Oozing and Foul Smelling Discharge Call your doctor if you observe: Fever of 101 or Higher, Shortness of breath and Chest pain Follow Up Care Please Follow Up With: Zechariah Mancini MD When: 2 weeks postoperatively Test Results: Test results from this visit will be discussed in further detail at your follow-up appointment, if applicable. Discharge Plan Admission Attending Provider: Zechariah Mancini Primary Care Provider: Gagan Moyer Discharge Orders/Prescriptions Prescriptions: New oxycodone 5 mg Tablet 5 mg PO Q6H PRN PRN (Reason: Pain Score 7-10) 5 Days Qty: 20 RF: 0 Continued metoprolol tartrate 25 mg tablet 100 mg PO DAILY RF: 0 ibuprofen 400 mg Tablet 400 mg PO Q6H PRN (Reason: Pain) RF: 0 magnesium 500 mg Tablet 15 mg PO DAILY RF: 0 hydrocortisone-pramoxine 2.5-1 % cream 1 applic TOPICAL DAILY RF: 0 zinc 50 mg Tablet 50 mg PO DAILY RF: 0 Nurtec ODT 75 mg Tablet,Disintegrating 75 mg PO QODAY RF: 0 Discontinued desogestrel-ethinyl estradiol [Apri] 0.15-0.03 mg Tablet 1 tab PO DAILY RF: 0 Referrals / Follow Up: Gagan Moyer MD [Primary Care Provider] - Disposition Disposition (needs filled in before D/C Order can be placed): Home, Self Care
--- NOTE | 2021-12-03 09:30 | OP.PCM_ITS ---
Report of Operation Date of Procedure: 12/03/21 Pre-Operative Diagnosis: Pelvic pain Post-Operative Diagnosis: Pelvic pain Surgery/Procedure Performed:: Robotic assisted total laparoscopic hysterectomy bilateral salpingo-oophorectomy, cystoscopy Description of Surgical Findings:: Surgeon: Zechariah Mancini MD Anesthesia: General EBL: 50 cc Urine output: 400 cc none IV fluids: 1000 cc Complications none Specimen: Cervix, uterus, bilateral fallopian tubes bilateral ovaries Findings: Right ovary with utero ovarian adhesions attached to posterior portion of the uterus along with right fallopian tube. Left broad ligament with 2 cm defect. Otherwise normal uterus, tubes, and ovaries. Post procedure cystoscopy with no pathology noted. Consent: Patient with pelvic pain unresolved after multiple treatment modalities and elects for robotic assisted total laparoscopic hysterectomy bilateral salpingo- oophorectomy and cystoscopy. Patient understands risk of the procedure include but are not limited to visceral or vascular injury, prolonged hospitalization, blood loss and need for transfusion, reoperation. Patient understands risk of bilateral salpingo-oophorectomy with premenopausal state. Patient states understanding and wishes to proceed. All questions were answered and consent was signed. Procedure: Patient was brought back to the OR where general anesthesia was found to be adequate. 2 g of Ancef were given for infection prophylaxis. Patient was prepared and draped in a dorsolithotomy position with yellowfin stirrups. A weighted speculum is placed in posterior aspect of vagina cervical dilators were used to dilate the cervix. Uterine manipulator was placed. Varies needle was inserted at the umbilicus water safety test was passed and abdomen was insufflated midline supraumbilical 8 mm robotic trocar was inserted under direct visualization. Laparoscope was inserted and above findings were noted. Bilateral lower quadrant 8 mm robotic trochars were inserted under direct visualization. Left upper quadrant 12 mm trocar was inserted under direct visualization. Robot was docked. Using a vessel sealer and monopolar scissors the right IP ligament was identified, ureter was visualized and out of the oper ative field, right IP ligament was cut and cauterized with vessel sealer. Right round ligament cut and cauterized with vessel sealer. Right uterine vessels were skeletonized cut and cauterized with vessel sealer, lateralized beyond the level of the colpotomy cup. Bladder flap was developed. Left IP ligament was identified, left ureter was visualized and out of the operative field, left IP ligament was cut and cauterized with the vessel sealer. Left round ligament was cut and cauterized. Left uterine vessels were identified cut and cauterized, lateralized beyond the level of the colpotomy cup. Bladder flap was completely developed and dissected beyond the level of the colpotomy cup. Good hemostasis was noted. Circumferential colpotomy was made, uterus was removed from the abdominal cavity, good hemostasis was noted. V-Loc suture was used in a continuous running fashion to close the colpotomy. Good hemostasis was noted. Incision was reinspected and Jaun was placed over the colpotomy incision. Cystoscopy was performed and above findings were noted. Abdomen was desufflated and trochars were removed under direct visualization. 12 mm trocar site fascia was closed with a Vicryl UR 6 in a continuous running fashion. All trocar sites were closed in a subcuticular fashion and skin glue was placed at the incision sites. Good hemostasis was noted. All counts were correct x2. Patient tolerated procedure well and was brought to recovery in stable condition. bacteriologist dairy: Jorden Wheeler
[2021-12-03] MEDS: Ketorolac 30 MG/ML Syringe IV (12:47)
== END 2021-12-03 15:16 | disposition home or self-care (01) ==
LOC: SDC 05:24 → AC 05:25
PROVIDERS: Anesthesiology; PCP Family Medicine; Referring Provider Obstetrics & Gynecology; Visit Provider Obstetrics & Gynecology
PROC: 0UT94ZZ Resection of Uterus, Percutaneous Endoscopic Approach (ICD-10-PCS; CPT 58571; principal; 2021-12-03 07:10)
DX: N87.0 Mild cervical dysplasia (principal); N80.0 Endometriosis of uterus; N83.01 Follicular cyst of right ovary; N83.02 Follicular cyst of left ovary; N83.6 Hematosalpinx
CPT/HCPCS: 58571; S2900; 00840; 36415; 81025; 82962; 83735; 85027; 86850; 86900; 86901; 88307; J7120; J2405; J3475

== ENCOUNTER → 2022-03-26 | Outpatient (CLI) | payer BC, SELFPAY ==
--- NOTE | 2022-03-26 15:38 | MRI_ITS ---
STUDY: MRI BRAIN WITH AND WITHOUT CONTRAST REASON FOR EXAM: Female, 36 years old patient with worst headache of life. TECHNIQUE: Standardized multiplanar fat and water weighted pulse sequences were obtained. 15 mL of IV Clariscan was administered for the contrast portion of the examination. COMPARISON: None. FINDINGS: Normal size of the ventricles and extra-axial spaces for the patient''s age. Normal white matter tracts of the supratentorial brain. Normal T2* images of the brain without demonstrated susceptibility artifact. There is no demonstrated hemosiderin stain. There is no evidence for recent intracranial ischemia or other cause of cytotoxic edema on diffusion weighted imaging (DWI). Normal bilateral basal ganglia. Normal thalami. There is no extra-axial fluid accumulation. Normal flow voids within the major intracranial circulation suggesting patency by spin echo criteria. Normal venous enhancement. There is no enhancing intra-axial or extra-axial abnormality. Normal sella turcica, pituitary gland, infundibular stalk, optic chiasm and hypothalamus. Normal tectal plate and pineal gland. Normal midbrain, michelle and medulla. Normal cerebellum. Normal basal cisterns. Normal bilateral temporal bones. Normal bilateral internal auditory canals. No demonstrated orbital abnormality, within the constraints of a routine brain study. There is moderate mucosal thickening within the maxillary sinuses. There is also mucosal thickening within the ethmoid sinuses and left frontal sinus. There may be small mucous retention cyst in right sphenoid sinus. Normal calvarium and skull base. Normal visualized soft tissue structures. Normal visualized upper cervical spine. MRI/Brain W/WO Contrast IMPRESSION: 1. No MR evidence for acute infarct or mass. 2. Moderately severe paranasal sinus disease. Electronically Signed: Afsaneh Mancini MD at 4:45 EDT ,
== END | disposition home or self-care (01) ==
LOC: MRI 15:23
PROVIDERS: PCP Family Medicine; Visit Provider Family Medicine
DX: R51.9 Headache, unspecified (principal)
CPT/HCPCS: 70553; A9575

== ENCOUNTER → 2023-03-02 | Outpatient (CLI) | payer OTHER, SELFPAY ==
[2023-03-02 17:48] LABS: Hemoglobin 13.6 g/dL (12.0-15.0); Mean Corp Hgb Conc 30.9 g/dL (32-36); Mean Corpuscular Hgb 26.4 pg (27.0-32.0); Mean Corpuscular Volume 85.3 fL (81-99); Mean Platelet Vol. 9.7 fl (6.2-12.0); Platelet Count 295 K/mm3 (150-450); RBC Distribution Width SD 40.7 fl (35.1-43.9); Red Blood Count 5.16 M/mm3 (4.2-5.4); White Blood Count 7.9 K/mm3 (4.4-11.0)
[2023-03-02 18:01] LABS: Erythrocyte Sedimentation Rate 6 mm/hr (0-30)
== END | disposition home or self-care (01) ==
PROVIDERS: PCP Family Medicine; Referring Provider Internal Medicine Gastroenterology; Visit Provider Internal Medicine Gastroenterology
DX: K62.5 Hemorrhage of anus and rectum (principal)
CPT/HCPCS: 36415; 85027; 85652; 86140

== ENCOUNTER 2024-07-02 17:00 | Outpatient (RCR) | payer OTHER, SELFPAY ==
--- NOTE | 2024-05-22 17:07 | HP.PTEVAL ---
Patient's Visit Information Visit Information Visit Information: KURTIS JAMES is a 38 year old F referred to Physical Therapy by Dr. Gagan Moyer MD with a diagnosis of Cervicogenic headache. Date of Evaluation: 05/16/24 Physical Therapist: Gilmar Henry DPT Visit Plan Frequency: 2x /Week Duration: 6 Weeks Plan: 1) manual therapy to suboccpitals, SCM, UT 2) cervical retraction, deep neck flexor strengthening 3) progress postural strengthening throughout scapular musculature 3) May use US if needed. Subjective Subjective: Pt. is here today for her initial evaluation with diagnosis of cervicogenic headache, tension headaches. Pt. reports having increased pain with looking down. She reports having pain that starts at base of skull and wraps up the back side of her head. No N/T noted. Pt. reports no myotomal weakness noted. Pt. has not done any stretching or strengthening. Pt. reports having HS frequently 3-4 times per week. Pt. reports no visual changes with HAs. Pt. does have reduced symptoms with lying down. She reports soreness at base of her skull with palpation as well. Pt. reports no issues with sleeping. pt. has increased issues at work and with looking at computer screen. PT. is hopeful to reduce symptoms in order to get back to all recreational activities without limitations. Pain Suboccipitals: Pain Intensity (Out of 10): 2 Pain Intensity Range: 1 and 6 Objective Objective: POSTURE: Pt. has FH posture with increased thoracic kyphosis. Pt. is able to correct with VC/TCing. PALPATION: Pt. has tenderness at sib occipitals with palpation. Pt. has no pain with palpation of temporalis. Pt. does have some soreness at SCM as well. NEURO: normal. ROM: CERVICAL SPINE: flexion min loss tightness, ext min loss NE, SB nil loss NE bilat, SB nil loss NE bilat. Normal shoulder ROM bilat MMT: 5/5 throughout no myotomal weakness noted. Special Tests C/S Radiculapathy - Left Upper limb tension test: Negative C/S Radiculapathy - Right Upper limb tension test: Negative C/S Radiculapathy - Left Spurlings: Negative C/S Radiculapathy - Right Spurlings: Negative C/S Radiculapathy - Left Cervical distraction: Negative C/S Radiculapathy - Right Cervical distraction: Negative C/S Radiculapathy - Left Relief test: Negative C/S Radiculapathy - Right Relief test: Negative C/S Radiculapathy - Valsalva: Negative Cervical Sitting: Protrusion - Mechanical Response: No effect Cervical Sitting: Protrusion - Symptoms During Testing: No effect Cervical Sitting: Protrusion - Symptoms After Testing: No effect Cervical Sitting: Retraction - Mechanical Response: No effect Cervical Sitting: Retraction - Symptoms During Testing: Decreases Cervical Sitting: Retraction - Symptoms After Testing: No better Cervical Sitting: Retraction-Extension - Mechanical Response: No effect Cerv Sitting: Retraction-Extension - Symptoms During Testing: Decreases Cerv Sitting: Retraction-Extension - Symptoms After Testing: No better Cervical Sitting: Sidebend Right - Mechanical Response: No effect Cervical Sitting: Sidebend Right - Symptoms During Testing: Increases Cervical Sitting: Sidebend Right - Symptoms After Testing: No worse Balance/Special Test Scores Oswestry Neck Score: 18 Goals Goal 1:: LTG: Pt. to be I with HEP. Goal Time Frame: 4-6 Weeks Goal 2:: LTG: Pt. have 0-1 PEREZ per week. Goal Time Frame: 4-6 Weeks Goal 3:: LTG: Pt. to have full cervical ROM without increase in symptoms. Goal Time Frame: 4-6 Weeks Goal 4:: LTG: Pt. to demonstrate proper posture throughout therapy session indicating improved postural awareness. Goal Time Frame: 4-6 Weeks Rehabilitation Potential Physical Therapy Diagnosis: Pt. has signs and symptoms consistent with cervicogenic PEREZ. Pt. has signs and symptoms consistent with muscle tension PEREZ from sub occipitals and SCM. Pt. would benefit from PT to work postural stretching, manual therapy and progressing postural strengthening. Rehabilitation Potential: Excellent Anticipated Interventions Patient/Client Instruction: Educate patient on: Condition, Plan of Care, Risk Factors and Benefits of Fitness Program For the Purpose of:: To facilitate caregiver knowledge, To improve self management, To prevent re-injury and To improve ability to perform tasks related to life management Therapeutic Exercise to Include: Strength training, Body mechanics, Postural training, Flexibilty training, Passive ROM, Active ROM, Giovanna Exercises and Scapular Strength/Stabilization For the Purpose of:: To decrease pain, To increase ROM, To improve nutrient delivery to tissue, To increase oxygenation perfusion, To improve muscle performance and motor function, To improve health of tissue, To decrease soft tissue restriction and To increase flexibility/ROM Manual Therapy Techniques to Include: Mobilization, Functional dry needling and Soft tissue mobilization Comment: IASTIM For the Purpose of:: To decrease pain, To decrease swelling/inflammation, To increase ROM and To improve nutrient delivery to tissue Text: Thank you for the opportunity to evaluate your patient. For Medicare and Medicare HMO plans, please review the plan of care and approve it. It will need to be FAXED BACK to us at [phone] for Medicare purposes. For Medicare only, by signing this I certify the plan of care. Please let me know if there are questions or concerns regarding this plan of care. Physician Signature: Date:
--- NOTE | 2024-06-14 08:29 | HP.PTREVAL ---
Re-Evaluation Intro: Dr. Gagan Moyer MD, It has been my pleasure to treat KURTIS JAMES over the last 5 visits for Cervicogenic headache. Please see the progress note below for an update on the physical therapy plan of care! Subjective Subjective: Pt. reports overall doing well. Pt. reports no PEREZ. Pt. reports Objective Objective/Function: ROM: cervical spine: close to full motion, mild increase in symptoms with end range extension. Good cervical retraction with out increase in symptoms. Pt. does have high level of tenderness at C5 spinous process with PAs. Pressure here caused increased hot feeling and caused slight PEREZ like symptoms. PT has tightness in her chest and some weakness in her mid trap and posterior complex. Cont. to work on cervical extension, deep neck flexor strength. Stretching chest and progress scapular strengthening Pt. is overall doing well. Pt. is progressing as expected. Pt. reports having increased pain after last time. She reports she felt like two stretches, the rhomboid stretch and cervical retraction with the towel were bothersome. I talked to her about easing into exercises and the goal is to reduce symptoms rather than push through symptoms. Plan Plan Plan: I am extending PT for another 4 weeks x1 per week. work on cervical extension, deep neck flexor strength. Stretching chest and progress scapular strengthening 1) manual therapy to suboccpitals, SCM, UT 2) cervical retraction, deep neck flexor strengthening 3) progress postural strengthening throughout scapular musculature Balance/Gait/Functional tests Balance/Special Test Scores Oswestry Neck Score: 10 Goals Goals Goal 1:: LTG: Pt. to be I with HEP. Goal Time Frame: 4-6 Weeks Goal Progress: Progressing Goal 2:: LTG: Pt. have 0-1 PEREZ per week. Goal Time Frame: 4-6 Weeks Goal Progress: Progressing Goal 3:: LTG: Pt. to have full cervical ROM without increase in symptoms. Goal Time Frame: 4-6 Weeks Goal Progress: Progressing Goal 4:: LTG: Pt. to demonstrate proper posture throughout therapy session indicating improved postural awareness. Goal Time Frame: 4-6 Weeks Goal Progress: Progressing Anticipated Interventions Anticipated Interventions Patient/Client Instruction: Educate patient on: Condition, Plan of Care, Risk Factors and Benefits of Fitness Program For the Purpose of:: To facilitate caregiver knowledge, To improve self management, To prevent re-injury and To improve ability to perform tasks related to life management Therapeutic Exercise to Include: Strength training, Body mechanics, Postural training, Flexibilty training, Passive ROM, Active ROM, Giovanna Exercises and Scapular Strength/Stabilization For the Purpose of:: To decrease pain, To increase ROM, To improve nutrient delivery to tissue, To increase oxygenation perfusion, To improve muscle performance and motor function, To improve health of tissue, To decrease soft tissue restriction and To increase flexibility/ROM Manual Therapy Techniques to Include: Mobilization, Functional dry needling and Soft tissue mobilization Comment: IASTIM For the Purpose of:: To decrease pain, To decrease swelling/inflammation, To increase ROM and To improve nutrient delivery to tissue Re-Evaluation Ending Re-evaluation ending: Please do not hesitate to contact me at [phone] by phone or if you have questions or concerns regarding this new plan of care! Sincerely, Gilmar Henry DPT
== END 2024-07-02 19:00 | disposition home or self-care (01) ==
LOC: PT 17:00
PROVIDERS: PCP Family Medicine; Referring Provider Family Medicine; Visit Provider Family Medicine
DX: G44.86 Cervicogenic headache (principal); G44.209 Tension-type headache, unspecified, not intractable
CPT/HCPCS: 97110; 97140; 97161

== ENCOUNTER → 2025-05-07 | Outpatient (CLI) | payer OTHER, SELFPAY ==
[2025-05-07 09:50] LABS: Hematocrit 46.6 % (37-47); Hemoglobin 14.8 g/dL (12.0-15.0); Immature Granulocytes Count 0.010 X10^3/uL (0.0-0.0); Mean Corp Hgb Conc 31.8 g/dL (32-36); Mean Corpuscular Volume 84.6 fL (81-99); Mean Platelet Vol. 11.0 fl (6.2-12.0); NRBC Flagged by Analyzer 0 % (0-5); Platelet Count 271 K/mm3 (150-450); RBC Distribution Width CV 12.7 % (11.6-14.6); RBC Distribution Width SD 39.0 fl (35.1-43.9); Red Blood Count 5.51 M/mm3 (4.2-5.4); White Blood Count 8.6 K/mm3 (4.4-11.0)
[2025-05-07 10:29] LABS: AST(SGOT) 21 U/L (<=31); Alanine Aminotransfer ALT/SGPT 13 U/L (<=34); Albumin, Serum 4.5 g/dL (3.5-5.0); Alkaline Phosphatase 99 U/L (35-104); Anion Gap 11 (5-15); BUN 14 mg/dL (4-19); BUN/Creat Ratio 15.8 RATIO (10-20); Calcium,Total 9.8 mg/dL (7.6-11.0); Carbon Dioxide 26.0 mmol/L (21.0-32.0); Chloride 103 mmol/L (98-108); Cholesterol 266 mg/dL (<=200); Globulin 3.6 g/dL (2.2-4.2); Glucose 95 mg/dL (70-99); Low Density Lipoprotein Calc. 188 mg/dL; Potassium 4.2 mmol/L (3.3-5.1); Triglycerides 207 mg/dL; Very Low Density Lipoprotein 41 mg/dL (5-40); cholesterol:hdl ratio screen 6.93
== END | disposition home or self-care (01) ==
LOC: MFPLAB 08:10
PROVIDERS: PCP Family Medicine; Visit Provider Family Medicine
DX: E78.5 Hyperlipidemia, unspecified (principal)
CPT/HCPCS: 36415; 80053; 80061; 85025

== ENCOUNTER → 2025-06-20 | Outpatient (CLI) | payer OTHER, SELFPAY ==
[2025-06-26 10:08] LABS: Estrogen, Total, Serum 561 pg/mL (.)
== END | disposition home or self-care (01) ==
PROVIDERS: PCP Family Medicine; Visit Provider Advanced Practice Midwife
DX: Z13.29 Encounter for screening for other suspected endocrine disorder (principal); R23.2 Flushing
CPT/HCPCS: 36415; 82672; 84439; 84443